=== PATIENT | male | born 1975 ===

== ENCOUNTER → 2023-11-23 | Outpatient (REF) | payer SELFPAY ==
[2023-11-23 14:21] LABS: RSV AMPLIFICATION NEGATIVE (NEGATIVE)
== END ==
LOC: M LAB REF 12:56
PROVIDERS: ATTEND Nurse Practitioner Adult Health
DX: R05.9 Cough, unspecified (principal); R09.89 Other specified symptoms and signs involving the circulatory and respiratory systems